=== PATIENT | female | born 1940 | race Caucasian/White ===

== ENCOUNTER 2018-02-27 13:23 | Observation (INO) ==
[2018-02-27] MEDS ORDERED: Adenosine Inj 6 MG/2 ML Syringe IV.PUSH ONE (13:35)
[2018-02-27] MEDS ORDERED: dilTIAZem Inj 125 MG in Sodium Chlor 0.9% Inj 100 ML IV.CONT PRN (13:51)
[2018-02-27 13:54] LABS: Baso % (Auto) 0.5 % (0.0-2.0); Eos # (Auto) 0.1 th/mm3 (0.0-0.4); Eos % (Auto) 1.4 % (0.0-4.0); Hematocrit 42.6 % (35.0-46.0); Hemoglobin 13.6 gm/dL (11.6-15.3); Lymph # (Auto) 3.1 th/mm3 (1.0-4.8); Lymph % (Auto) 37.6 % (9.0-44.0); Mean Corpuscular HGB Conc 31.8 % (32.0-36.0); Mean Corpuscular Hemoglobin 30.6 pg (27.0-34.0); Mean Corpuscular Volume 96.1 fL (80.0-100.0); Mean Platelet Volume 7.3 fL (7.0-11.0); Mono # (Auto) 0.9 th/mm3 (0.0-0.9); Mono % (Auto) 10.9 % (0.0-8.0); Neut # (Auto) 4.2 th/mm3 (1.8-7.7); Neut % (Auto) 49.6 % (16.0-70.0); Platelet Count 410 th/mm3 (150-450); Red Blood Count 4.43 mil/mm3 (4.00-5.30); Red Cell Distribution Width 13.8 % (11.6-17.2); White Blood Count 8.3 th/mm3 (4.0-11.0)
[2018-02-27 14:01] LABS: Chloride 96 meq/L (98-107); Potassium 3.5 meq/L (3.5-5.1); Sodium 130 meq/L (136-145)
[2018-02-27 14:05] LABS: Anion Gap 10 meq/L (5-15); Blood Urea Nitrogen 15 mg/dL (7-18); Calcium 8.5 mg/dL (8.5-10.1); Carbon Dioxide 23.6 meq/L (21.0-32.0); Glucose,Random 119 mg/dL (74-106); Magnesium 2.3 mg/dL (1.5-2.5)
[2018-02-27 14:08] LABS: Alanine Aminotransferase 16 U/L (10-53); Aspartate Aminotransferase 15 U/L (15-37); Glomerular Filtration Rate 48 mL/min (>89)
[2018-02-27 14:10] LABS: Total Protein 7.6 g/dL (6.4-8.2)
[2018-02-27 14:11] LABS: Alkaline Phosphatase 93 U/L (45-117)
[2018-02-27 14:31] LABS: Creatine Kinase 72 U/L (26-192)
--- NOTE | 2018-02-27 14:32 | XR ---
EXAM DATE: 02/27/2018 2:09 PM EST AGE/SEX: 77 years / Female INDICATIONS: Heart racing. CLINICAL DATA: This is the patient's initial encounter. Patient reports that signs and symptoms have been present for 1 day and indicates a pain score of 0/10. MEDICAL/SURGICAL HISTORY: None. None. COMPARISON: No prior exams available for comparison. FINDINGS: A single AP view of the chest demonstrates the lungs to be symmetrically aerated without evidence of mass, infiltrate or effusion. The cardiomediastinal contours are unremarkable. Osseous structures a re intact. CONCLUSION: Negative examination. Electronically signed by: Adin Rangel MD 02/27/2018 2:31 PM EST
[2018-02-27 15:04] LABS: Bilirubin,Urine Negative (Negative); Clarity,Urine Clear (Clear); Glucose,Urine (UA) Negative (Negative); Leukocyte Esterase,Urine Trace (Negative); Nitrite,Urine Negative (Negative); Urobilinogen,Urine 0.2 mg/dL (Less than 2)
[2018-02-27 15:06] LABS: Color,Urine Straw (Yellw/Straw)
[2018-02-27 15:10] LABS: RBC,Urine 0-3 /hpf (0-3)
[2018-02-27 15:11] LABS: Bacteria,Urine Rare /hpf; WBC,Urine 0-5 /hpf (0-5)
--- NOTE | 2018-02-27 16:30 | ED ---
HPI General Chief Complaint: Arrhythmia / Palpitations Stated Complaint: heart racing Time Seen by Provider: 02/27/18 13:29 History of Present Illness HPI narrative: This is a 77-year-old female with a history of atrial fibrillation, hyperlipidemia, hypothyroidism, hypertension, who presents today with complaints of palpitations. Patient states she was watching TV when she started expressing palpitations. She states that it happened around noon. She states that this morning when she woke up, she was not feeling normal. She denies any chest pain, chest pressure. She denies any dizziness. She denies any shortness of breath. She states that she thinks she has had this once before. She states that when he started her on her medication but could not tell me which medication. She is currently not taking any blood thinners. Related Data Home Medications Medication Instructions Recorded Confirmed diltiazem HCl 240 mg PO DAILY 02/27/18 02/27/18 esomeprazole magnesium [Nexium] 20 mg PO DAILY 02/27/18 02/27/18 levothyroxine 25 mcg PO DAILY 02/27/18 02/27/18 lovastatin 40 mg PO DAILY 02/27/18 02/27/18 paroxetine HCl 10 mg PO DAILY 02/27/18 02/27/18 Allergies Allergy/AdvReac Type Severity Reaction Status Date / Time risedronate sodium AdvReac Severe NAUSEA Verified 02/27/18 13:28 Review of Systems ROS: all other systems reviewed are negative Constitutional Reports system reviewed and no additional complaints, except as docu Eyes Reports system reviewed and no additional [facility] Reports system reviewed and no additional complaints, except as docu Cardiovascular Denies chest pain, Denies diaphoresis, Reports rapid heart rate, Reports palpitations and Denies dyspnea Respiratory Denies chest congestion and Denies dyspnea Gastrointestinal Denies abdominal pain, Denies nausea and Denies vomiting Genitourinary Reports system reviewed and no additional complaints, [facility] Musculoskeletal Reports system reviewed and no additional complaints, except [facility] Neurologic Denies vertigo, Denies dizziness, Denies headache(s), Denies focal weakness and Denies weakness PMF Medical History Medical History Atrial fibrillation (Acute) H/O cardiac arrhythmia (Acute) History of depression (Acute) Hx of gastroesophageal reflux (GERD) (Acute) Hx of thyroid disease (Acute) Surgical History Surgical History No history of previous surgery (Acute) Social History Social History Substance History: No History of Abuse Smoking Status: Never smoker How Often Do You Have a Drink Containing Alcohol: Never Recent Travel in [facility] within the Last 8 Weeks: No Recent Out of Country Travel within the Last 8 Weeks: No Exam Narrative Exam Narrative: GENERAL: Well-developed well-nourished female in no acute respiratory distress. SKIN: Focused skin assessment warm/dry. HEAD: Atraumatic. Normocephalic. EYES: No scleral icterus. No injection or drainage. ENT: No nasal bleeding or discharge. Mucous membranes pink and moist. NECK: Trachea midline. Supple. CARDIOVASCULAR: Tachycardic with a rate in 150s. No obvious murmurs appreciated. RESPIRATORY: No accessory muscle use. Clear to auscultation. Breath sounds equal bilaterally. GASTROINTESTINAL: Abdomen soft, non-tender, nondistended. Hepatic and splenic margins not palpable. MUSCULOSKELETAL: No obvious deformities. No clubbing. No cyanosis. No edema. NEUROLOGICAL: Awake and alert. No obvious cranial nerve deficits. Motor grossly within normal limits. Normal speech. Course Initial Documented Vital Signs Pulse Rate 155 H 02/27/18 13:30 Last Documented Vital Signs Temperature 97.8 F 02/27/18 13:33 Pulse Rate 88 02/27/18 15:40 Respiratory Rate 16 02/27/18 15:40 Blood Pressure 119/75 02/27/18 15:40 Pulse Oximetry 97 02/27/18 15:40 Medical Decision Making [facility] Narrative Medical decision making narrative: 77-year-old female presents today with palpitations and tachycardia. Patient states she was watching TV when it came on. Looking to the patient's history she has had both atrial fibrillation and SVT. Initially it looked like a flutter with a 2-1 block. We gave her Identicard 6 mg IV push which slowed her heart rate down and look like it decreased into sinus rhythm however then she developed what looks like flutter waves and went right back into the tachycardic rate. She has been given a diltiazem bolus and placed on a diltiazem drip. She is currently rate controlled. She states she feels much improved. Her TSH level is greater than 8. She states that she has been taking all her medications as prescribed. Case was discussed with Dr. Jordan Boateng, physician covering for [facility], who will admit the patient under observation to his service. She is currently on a diltiazem drip therefore will go to a monitored floor. Further disposition will be per Dr. Marquez. Medical Screen Exam Complete: Yes Emergency Medical Condition: Yes Differential Diagnosis Differential Diagnosis: SVT versus atrial flutter versus sinus tachycardia versus metabolic derangement Lab Data Result diagrams: 02/27/18 13:30 02/27/18 13:30 Lab Results 02/27/18 02/27/18 02/27/18 Range/Units 13:30 13:30 14:50 CBC w Diff Auto diff final WBC 8.3 (4.0-11.0) th/mm3 RBC 4.43 (4.00-5.30) mil/mm3 Hgb 13.6 (11.6-15.3) gm/dL Hct 42.6 (35.0-46.0) % MCV 96.1 (80.0-100.0) fL MCH 30.6 (27.0-34.0) pg MCHC 31.8 L (32.0-36.0) % RDW 13.8 (11.6-17.2) % Plt Count 410 (150-450) th/mm3 MPV 7.3 (7.0-11.0) fL Neut % (Auto) 49.6 (16.0-70.0) % Lymph % (Auto) 37.6 (9.0-44.0) % [place] % (Auto) 10.9 H (0.0-8.0) % Eos % (Auto) 1.4 (0.0-4.0) % Baso % (Auto) 0.5 (0.0-2.0) % Neut # (Auto) 4.2 (1.8-7.7) th/mm3 Lymph # (Auto) 3.1 (1.0-4.8) th/mm3 [place] # (Auto) 0.9 (0.0-0.9) th/mm3 Eos # (Auto) 0.1 (0.0-0.4) th/mm3 Baso # (Auto) 0.0 (0.0-0.2) th/mm3 WBC Differential . Differential Comment . Sodium 130 L (136-145) meq/L Potassium 3.5 (3.5-5.1) meq/L Chloride 96 L (98-107) meq/L Carbon Dioxide 23.6 (21.0-32.0) meq/L Anion Gap 10 (5-15) meq/L BUN 15 (7-18) mg/dL Creatinine 1.10 H (0.50-1.00) mg/dL Estimated GFR 48 L (>89) mL/min Random Glucose 119 H (74-106) mg/dL Calcium 8.5 (8.5-10.1) mg/dL Magnesium 2.3 (1.5-2.5) mg/dL Total Bilirubin 0.3 (0.2-1.0) mg/dL AST 15 (15-37) U/L ALT 16 (10-53) U/L Alkaline Phosphatase 93 (45-117) U/L Total Creatine Kinase 72 (26-192) U/L Troponin I Less than 0.02 L (0.02-0.05) ng/mL Total Protein 7.6 (6.4-8.2) g/dL Albumin 4.0 (3.4-5.0) g/dL TSH 8.250 H (0.358-3.740) uIU/mL Urine Color Straw (Yellw/Straw) Urine Clarity Clear (Clear) Urine pH 7.0 (5.0-8.5) Ur Specific [place] 1.010 (1.002-1.035) Urine Protein Negative (Neg-Trace) mg/dL Urine Glucose (UA) Negative (Negative) mg/dL Urine Ketones Negative (Negative) mg/dL Urine Occult Blood Small H (Negative) Urine Nitrate Negative (Negative) Urine Bilirubin Negative (Negative) Urine Urobilinogen 0.2 (Less than 2) mg/dL Ur Leukocyte Esterase Trace H (Negative) Urine RBC 0-3 (0-3) /hpf Urine WBC 0-5 (0-5) /hpf Urine Bacteria Rare H (None) /hpf Micro UA Comment Culture not ind Ur Microscopic Review Microscopic reviewed Urine Culture Comments Culture not ind Imaging Data Radiologist's impression: Chest X-Ray 02/27/18 13:35 CONCLUSION: Negative examination. Discharge Plan Discharge Disposition Patient Disposition: 30 Still Patient Discharge Details Diagnosis: Supraventricular tachycardia, Hypothyroidism Physicians Team ED Provider: Connor Joseph Primary Care Provider: Malini Yen Attending Provider: Jordan Marquez Discharge Interventions Interventions: Vital Signs Last Done: 02/27/18 15:40 Status ED Status: Admitted Observation Patient
[2018-02-27] MEDS ORDERED: Acetaminophen 325 MG Tablet PO PRN ×2 (16:59→21:55)
--- NOTE | 2018-02-27 17:11 | P.HP ---
History of Present Illness Service: [facility] Primary Care Physician: Malini Yen MD Chief Complaint: Palpitations History of Present Illness: 77-year-old white female who presents the emergency room with feelings of increased palpitations she has had this problem in the past she carries a history of both atrial flutter and history of SVT and has been on Cardizem 240 once a day, and has been taking her medicine regularly also has a history of hypothyroid and is is according to the records supposed to be on 50 MCG's but she says she is taking 25. No symptoms of chest pain no symptoms of shortness of breath no nausea no vomiting. Of note when she had the symptoms of increased heart rate she did take an aspirin she has declined use of any type of blood thinners in the past we did discuss at least she should consider aspirin daily with the possible addition of Eliquis or Xarelto. Patient was started on a Cardizem drip with improvement in the heart rate the atrial flutter seem to resolve into an SVT and then to a sinus. She is on Cardizem drip now will taper and DC it and will increase her p.o. Cardizem to 300 mg also will adjust her thyroid medicine to levothyroxine at 50 mg patient will be watched overnight with possible discharge in a.m. - Diagnosis (1) Atrial flutter with rapid ventricular response (2) Supraventricular tachycardia (3) Hypothyroidism Review of Systems All other systems reviewed negative except as stated in HPI [facility] - History History Provided By: Patient - Medical History Medical History: Medical History (Last Reviewed 02/27/18 @ 17:08 by Jordan Marquez MD) H/O cardiac arrhythmia History of depression Hx of gastroesophageal reflux (GERD) Hx of thyroid disease - Surgical History Surgical History: Surgical History (Last Reviewed 02/27/18 @ 17:08 by Jordan Marquez MD) No history of previous surgery - Tobacco History Smoking Status: Never smoker - Alcohol History How Often Do You Have a Drink Containing Alcohol: Never - Substance Use History Substance History: No History of Abuse - Travel History Recent Travel in the [place] Within the Last 8 Weeks: No Recent Travel Out of the Country Within the Last 8 Weeks: No - Immunization History Tetanus Immunization: Unsure Medications and Allergies Active Medications: Active Medications Acetaminophen (Tylenol) 650 mg PO Q4H PRN PRN Reason: Temp > 100.4 Diltiazem HCl (Cardizem Cd 24hr) 300 mg PO DAILY BILLY Diltiazem HCl 125 mg/ Sodium (Chloride) 125 mls @ 5 mls/hr IV.CONT TITRATE PRN ; Protocol PRN Reason: Per Protocol Last Admin: 02/27/18 14:39 Dose: 5 mg/hr, 5 mls/hr Levothyroxine Sodium (Synthroid) 50 mcg PO DAILY@0600 BILLY Non-Formulary Medication (Esomeprazole Magnesium [Nexium]) 20 mg PO DAILY BILLY Non-Formulary Medication (Lovastatin [Lovastatin]) 40 mg PO DAILY BILLY Non-Formulary Medication (Paroxetine Hcl [Paroxetine Hcl]) 10 mg PO DAILY BILLY Ondansetron HCl (Zofran Inj) 4 mg IV.PUSH Q6H PRN PRN Reason: NAUSEA OR VOMITING Senna/Docusate Sodium (Alana-Colace) 1 tab PO BID [facility] Sodium Chloride (Ns Flush) 2 ml IV.FLUSH PRN PRN PRN Reason: FLUSH AFTER USING IV ACCESS Last Admin: 02/27/18 13:49 Dose: 2 ml Sodium Chloride (Ns Flush) 2 ml IV.FLUSH BID BILLY Sodium Chloride (Ns Flush) 2 ml IV.FLUSH PRN PRN PRN Reason: FLUSH AFTER USING IV ACCESS Allergies Allergy/AdvReac Type Severity Reaction Status Date / Time risedronate sodium AdvReac Severe NAUSEA Verified 02/27/18 13:28 Home Medications Medication Instructions Recorded Confirmed Type diltiazem HCl 240 mg PO DAILY 02/27/18 02/27/18 History esomeprazole magnesium [Nexium] 20 mg PO DAILY 02/27/18 02/27/18 History levothyroxine 25 mcg PO DAILY 02/27/18 02/27/18 History lovastatin 40 mg PO DAILY 02/27/18 02/27/18 History paroxetine HCl 10 mg PO DAILY 02/27/18 02/27/18 History Exam Vital signs: Vital Signs 02/27/18 13:30 02/27/18 13:33 02/27/18 14:30 Temperature 97.8 F Pulse Rate 155 H 154 H 164 H Respiratory Rate 16 Blood Pressure 184/89 H Pulse Oximetry 94 L 02/27/18 14:55 02/27/18 15:10 02/27/18 15:25 Temperature Pulse Rate 97 H 92 H 92 H Respiratory Rate 16 16 16 Blood Pressure 112/70 121/73 118/76 Pulse Oximetry 97 97 98 02/27/18 15:40 Temperature Pulse Rate 88 Respiratory Rate 16 Blood Pressure 119/75 Pulse Oximetry 97 Intake & Output 02/26/18 02/27/18 02/27/18 18:59 06:59 18:59 Weight 61 kg Narrative: GENERAL: SKIN: Warm and dry. HEAD: Normocephalic. EYES: No scleral icterus. No injection or drainage. NECK: Supple, trachea midline. No JVD or lymphadenopathy. CARDIOVASCULAR: Irregular rate and rhythm without murmurs, gallops, or rubs. RESPIRATORY: Breath sounds equal bilaterally. No accessory muscle use. GASTROINTESTINAL: Abdomen soft, non-tender, nondistended. MUSCULOSKELETAL: No cyanosis, or edema. BACK: Nontender without obvious deformity. No CVA tenderness. Results - Labs CBC & Chem 7: 02/27/18 13:30 02/27/18 13:30 Labs: Laboratory Results - last 24 hr 02/27/18 02/27/18 02/27/18 13:30 13:30 14:50 CBC w Diff Auto diff final WBC 8.3 RBC 4.43 Hgb 13.6 Hct 42.6 MCV 96.1 MCH 30.6 MCHC 31.8 L RDW 13.8 Plt Count 410 MPV 7.3 Neut % (Auto) 49.6 Lymph % (Auto) 37.6 [place] % (Auto) 10.9 H Eos % (Auto) 1.4 Baso % (Auto) 0.5 Neut # (Auto) 4.2 Lymph # (Auto) 3.1 [place] # (Auto) 0.9 Eos # (Auto) 0.1 Baso # (Auto) 0.0 WBC Differential . Differential Comment . Sodium 130 L Potassium 3.5 Chloride 96 L Carbon Dioxide 23.6 Anion Gap 10 BUN 15 Creatinine 1.10 H Estimated GFR 48 L Random Glucose 119 H Calcium 8.5 Magnesium 2.3 Total Bilirubin 0.3 AST 15 ALT 16 Alkaline Phosphatase 93 Total Creatine Kinase 72 Troponin I Less than 0.02 L Total Protein 7.6 Albumin 4.0 TSH 8.250 H Urine Color Straw Urine Clarity Clear Urine pH 7.0 Ur Specific [place] 1.010 Urine Protein Negative Urine Glucose (UA) Negative Urine Ketones Negative Urine Occult Blood Small H Urine Nitrate Negative Urine Bilirubin Negative Urine Urobilinogen 0.2 Ur Leukocyte Esterase Trace H Urine RBC 0-3 Urine WBC 0-5 Urine Bacteria Rare H Micro UA Comment Culture not ind Ur Microscopic Review Microscopic reviewed Urine Culture Comments Culture not ind - Imaging Impressions Chest X-Ray 02/27/18 13:35 CONCLUSION: Negative examination. Caprini VTE Risk Assessment Caprini VTE Risk Assessment: Moderate/High Risk (score >= 2) Caprini Risk Assessment Model: Point Value = 1 Point Value = 2 Point Value = 3 Point Value = 5 Age 41-60 Minor surgery BMI > 25 kg/m2 Swollen legs Varicose veins or History of unexplained or recurrent spontaneous Oral contraceptives or hormone replacement Sepsis (< 1 month) Serious lung disease, including pneumonia (< 1 month) Abnormal pulmonary function Acute myocardial infarction Congestive heart failure (< 1 month) History of inflammatory bowel disease Medical patient at bed rest Age 61-74 Arthroscopic surgery Major open surgery (> 45 min) Laparoscopic surgery (> 45 min) Malignancy Confined to bed (> 72 hours) Immobilizing plaster cast Central venous access Age >= 75 History of VTE Family history of VTE Factor V Leiden Prothrombin [id number] Lupus anticoagulant Anticardiolipin antibodies Elevated serum homocysteine Heparin-induced thrombocytopenia Other congenital or acquired thrombophilia Stroke (< 1 month) Elective arthroplasty Hip, pelvis, or leg fracture Acute spinal cord injury (< 1 month) Prophylaxis Regimen: Total Risk Factor Score Risk Level Prophylaxis Regimen 0-1 Low Early ambulation 2 Moderate Order ONE of the following: *Sequential Compression Device (SCD) *Heparin 5000 units SQ BID 3-4 Higher Order ONE of the following medications: *Heparin 5000 units SQ TID *Enoxaparin/Lovenox 40 mg SQ daily (WT < 150 kg, CrCl > 30 mL/min) *Enoxaparin/Lovenox 30 mg SQ daily (WT < 150 kg, CrCl > 10-29 mL/min) *Enoxaparin/Lovenox 30 mg SQ BID (WT < 150 kg, CrCl > 30 mL/min) AND/OR *Sequential Compression Device (SCD) 5 or more Highest Order ONE of the following medications: *Heparin 5000 units SQ TID (Preferred with Epidurals) *Enoxaparin/Lovenox 40 mg SQ daily (WT < 150 kg, CrCl > 30 mL/min) *Enoxaparin/Lovenox 30 mg SQ daily (WT < 150 kg, CrCl > 10-29 mL/min) *Enoxaparin/Lovenox 30 mg SQ BID (WT < 150 kg, CrCl > 30 mL/min) AND *Sequential Compression Device (SCD) Assessment and Plan - Assessment (1) Atrial flutter with rapid ventricular response Code(s): I48.92 - Unspecified atrial flutter Status: Acute Plan: Heart rate has slowed down with the use of IV Cardizem on a drip hopefully we can DC this in favor of p.o. Cardizem increased from 240-300 and can follow-up with her primary care physician consider possibly addition of blood thinners. (2) Supraventricular tachycardia Code(s): I47.1 - Supraventricular tachycardia Status: Acute Plan: Rate on initial evaluation appeared to be atrial flutter also looks like there is SVT and now is in a sinus type rhythm we will continue to observe (3) Hypothyroidism Code(s): E03.9 - Hypothyroidism, unspecified Status: Acute Plan: Thyroid dose has been adjusted to 50 MCG and can follow-up as an outpatient as her TSH was 8 - Plan Further plan as case develops she did have a low sodium we will recheck that in the a.m. Code Status: Full Discussed Condition With: Patient and family (3) Hypothyroidism Qualifiers: Hypothyroidism type: unspecified Qualified Code(s): E03.9 - Hypothyroidism, unspecified
[2018-02-27] MEDS: Sod Chloride 0.9% Inj 1,000 ML IV.CONT SCH (20:12)
[2018-02-27] MEDS: Senna/Docusate Sodium 8.6/50 MG Tablet PO SCH (20:13)
[2018-02-28] MEDS ORDERED: Levothyroxine 50 MCG Tablet PO SCH (06:00)
[2018-02-28] MEDS: Sod Chloride 0.9% Inj 1,000 ML IV.CONT SCH (06:17)
[2018-02-28 06:21] LABS: Potassium 3.8 meq/L (3.5-5.1)
[2018-02-28 06:24] LABS: Calcium 8.4 mg/dL (8.5-10.1)
[2018-02-28 06:25] LABS: Carbon Dioxide 25.9 meq/L (21.0-32.0)
[2018-02-28] MEDS ORDERED: dilTIAZem CD 300 MG Capsule PO SCH (09:00)
[2018-02-28] MEDS ORDERED: Pantoprazole Sodium 20 MG DR Tablet PO SCH (09:00)
[2018-02-28 09:17] VITALS: O2SAT 96
[2018-02-28] MEDS: Senna/Docusate Sodium 8.6/50 MG Tablet PO SCH (09:23)
--- NOTE | 2018-02-28 09:39 | P.DS ---
Date of admission: 02/27/18 15:57 Primary care physician: Malini Yen MD Attending physician on discharge: Jordan Marquez Anticipated date of discharge: 02/28/18 Brief History from admission: 77-year-old white female who presents the emergency room with feelings of increased palpitations she has had this problem in the past she carries a history of both atrial flutter and history of SVT and has been on Cardizem 240 once a day, and has been taking her medicine regularly also has a history of hypothyroid and is is according to the records supposed to be on 50 MCG's but she says she is taking 25. No symptoms of chest pain no symptoms of shortness of breath no nausea no vomiting. Of note when she had the symptoms of increased heart rate she did take an aspirin she has declined use of any type of blood thinners in the past we did discuss at least she should consider aspirin daily with the possible addition of Eliquis or Xarelto. Patient was started on a Cardizem drip with improvement in the heart rate the atrial flutter seem to resolve into an SVT and then to a sinus. She is on Cardizem drip now will taper and DC it and will increase her p.o. Cardizem to 300 mg also will adjust her thyroid medicine to levothyroxine at 50 mg patient will be watched overnight with possible discharge in a.m. DS: Diagnosis - Discharge Diagnosis (1) Atrial flutter with rapid ventricular response Status: Acute (2) Supraventricular tachycardia Status: Acute (3) Hypothyroidism Status: Acute DS: Summary Hospital Course: Patient admitted from ER had episode atrial flutter with svt converted to sins after adenocard then cardiazem drip which was d/becka and patient has been in sinus overnight also her home med was levothyroxine 50 and that was corrected in med list. Patient had sodium and cr a little off corrected with some IV fluid. Discharge home on asa 325,levothyroxine 50,cardiazem 300 and follow up next week with PCP. - Time Spent with Patient Total time spent providing and/or coordinating discharge services: Less than 30 minutes Exam Vital signs: Vital Signs 02/27/18 13:30 02/27/18 13:33 02/27/18 14:30 Temperature 97.8 F Pulse Rate 155 H 154 H 164 H Respiratory Rate 16 Blood Pressure 184/89 H Pulse Oximetry 94 L 02/27/18 14:55 02/27/18 15:10 02/27/18 15:25 Temperature Pulse Rate 97 H 92 H 92 H Respiratory Rate 16 16 16 Blood Pressure 112/70 121/73 118/76 Pulse Oximetry 97 97 98 02/27/18 15:40 02/27/18 16:00 02/27/18 16:30 Temperature Pulse Rate 88 88 88 Respiratory Rate 16 16 16 Blood Pressure 119/75 123/68 115/65 Pulse Oximetry 97 02/27/18 17:30 02/27/18 17:34 02/27/18 17:38 Temperature Pulse Rate 84 82 Respiratory Rate 16 24 Blood Pressure 103/67 118/55 L Pulse Oximetry 02/27/18 18:35 02/27/18 19:00 02/27/18 20:00 Temperature 97.9 F 98.3 F Pulse Rate 78 74 Respiratory Rate 21 22 Blood Pressure 122/76 123/63 Pulse Oximetry 97 02/27/18 20:09 02/27/18 21:01 02/27/18 21:19 Temperature Pulse Rate 80 72 Respiratory Rate 34 H 14 Blood Pressure 123/63 104/60 Pulse Oximetry 97 02/27/18 22:00 02/27/18 23:00 02/28/18 00:00 Temperature 98.7 F Pulse Rate 74 68 66 Respiratory Rate 26 H 24 14 Blood Pressure 110/56 L 102/45 L 107/48 L Pulse Oximetry 95 02/28/18 03:05 02/28/18 04:00 02/28/18 08:00 Temperature 98.1 F Pulse Rate 60 62 Respiratory Rate 20 14 Blood Pressure 135/56 L 135/56 L Pulse Oximetry 97 96 Intake & Output 02/27/18 02/28/18 02/28/18 18:59 06:59 18:59 Intake Total 1200 / 1200 Output Total 1125 / 1125 Balance 75 / 75 Weight 63.4 kg 63.2 kg Intake: IV 1000 / 1000 NS Inj 1,000 ML @ 84 mls/hr IV. 1000 / 1000 CONT .[id number] BILLY Rx#: [id number] Oral 200 / 200 Output: Urine 1125 / 1125 Other: # Voids 2 Date of Last Bowel Movement 02/27/18 # Bowel Movements 0 Weight On Admission 63.4 kg Narrative: GENERAL: SKIN: Warm and dry. HEAD: Normocephalic. EYES: No scleral icterus. No injection or drainage. NECK: Supple, trachea midline. No JVD or lymphadenopathy. CARDIOVASCULAR: regular rate and rhythm without murmurs, gallops, or rubs. RESPIRATORY: Breath sounds equal bilaterally. No accessory muscle use. GASTROINTESTINAL: Abdomen soft, non-tender, nondistended. MUSCULOSKELETAL: No cyanosis, or edema. BACK: Nontender without obvious deformity. No CVA tenderness. Results Procedures completed during hospitalization: none Labs on day of discharge: Labs from last 24 hours 02/28/18 02/27/18 02/27/18 06:02 20:25 14:50 CBC w Diff WBC RBC Hgb Hct MCV MCH MCHC RDW Plt Count MPV Neut % (Auto) Lymph % (Auto) [place] % (Auto) Eos % (Auto) Baso % (Auto) Neut # (Auto) Lymph # (Auto) [place] # (Auto) Eos # (Auto) Baso # (Auto) WBC Differential Differential Comment Sodium 133 L Potassium 3.8 Chloride 100 Carbon Dioxide 25.9 Anion Gap 7 BUN 12 Creatinine 0.91 Estimated GFR 60 L Random Glucose 109 H Calcium 8.4 L Magnesium Total Bilirubin AST ALT Alkaline Phosphatase Total Creatine Kinase Troponin I Less than 0.02 L Total Protein Albumin TSH Urine Color Straw Urine Clarity Clear Urine pH 7.0 Ur Specific [place] 1.010 Urine Protein Negative Urine Glucose (UA) Negative Urine Ketones Negative Urine Occult Blood Small H Urine Nitrate Negative Urine Bilirubin Negative Urine Urobilinogen 0.2 Ur Leukocyte Esterase Trace H Urine RBC 0-3 Urine WBC 0-5 Urine Bacteria Rare H Micro UA Comment Culture not ind Ur Microscopic Review Microscopic reviewed Urine Culture Comments Culture not ind 02/27/18 02/27/18 13:30 13:30 CBC w Diff Auto diff final WBC 8.3 RBC 4.43 Hgb 13.6 Hct 42.6 MCV 96.1 MCH 30.6 MCHC 31.8 L RDW 13.8 Plt Count 410 MPV 7.3 Neut % (Auto) 49.6 Lymph % (Auto) 37.6 [place] % (Auto) 10.9 H Eos % (Auto) 1.4 Baso % (Auto) 0.5 Neut # (Auto) 4.2 Lymph # (Auto) 3.1 [place] # (Auto) 0.9 Eos # (Auto) 0.1 Baso # (Auto) 0.0 WBC Differential . Differential Comment . Sodium 130 L Potassium 3.5 Chloride 96 L Carbon Dioxide 23.6 Anion Gap 10 BUN 15 Creatinine 1.10 H Estimated GFR 48 L Random Glucose 119 H Calcium 8.5 Magnesium 2.3 Total Bilirubin 0.3 AST 15 ALT 16 Alkaline Phosphatase 93 Total Creatine Kinase 72 Troponin I Less than 0.02 L Total Protein 7.6 Albumin 4.0 TSH 8.250 H Urine Color Urine Clarity Urine pH Ur Specific [place] Urine Protein Urine Glucose (UA) Urine Ketones Urine Occult Blood Urine Nitrate Urine Bilirubin Urine Urobilinogen Ur Leukocyte Esterase Urine RBC Urine WBC Urine Bacteria Micro UA Comment Ur Microscopic Review Urine Culture Comments - Impressions ITS Impressions Chest X-Ray 02/27/18 13:35 CONCLUSION: Negative examination. Discharge Plan - Discharge Disposition Patient Disposition: Discharge Home - Discharge Condition Condition: Good - Discharge Order Discharge Orders: Discharge Order (Routine); Ordered 02/28/18 Ordered By: Jordan Marquez - Discharge Details Anticipated Discharge Date: 02/28/18 - Physicians Team Primary Care Provider: Malini Yen Attending Provider: Jordan Marquez
[2018-02-28 09:40] VITALS: BP 133/56; RESP 22; TEMP 97.9
[2018-02-28 09:44] VITALS: PULSE 85
--- NOTE | 2018-02-28 12:44 | ECG ---
Date Performed: 02/27/2018 Time Performed: 13:49:04 PTAGE: 77 years EKG: SINUS TACHYCARDIA MODERATE ST DEPRESSION ABNORMAL ECG Since the PREVIOUS TRACING , no significant change noted PREVIOUS TRACIN02/27/2018 13.28 DOCTOR: Eugene Jose Interpretating Date/Time 02/28/2018 12:43:23
--- NOTE | 2018-02-28 13:24 | ECG ---
Date Performed: 02/27/2018 Time Performed: 15:16:36 PTAGE: 77 years EKG: Sinus rhythm NORMAL ECG PREVIOUS TRACING : 02/27/2018 13.49 Compared to previous tracing, rate has slowed. ST changes h ave improved. DOCTOR: Eugene Jose Interpretating Date/Time 02/28/2018 13:24:27
--- NOTE | 2018-02-28 13:24 | ECG ---
Date Performed: 02/27/2018 Time Performed: 13:28:25 PTAGE: 77 years EKG: SINUS TACHYCARDIA WITH SHORT HI INTERVAL, POSSIBLE ATRIAL FLUTTER ST DEVIATION AND MODERATE T-WAVE ABNORMALITY, CONSIDER INFERIOR ISCHEMIA ABNORMAL ECG PREVIOUS TRACING : 06/16/2002 06.57 Compared to previous tracing, tachycardia is now noted with Nonspecific ST-T wave changes suggestive of ischemia. Clinical correlation is recommended DOCTOR: Eugene Jose Interpretating Date/Time 02/28/2018 13:23:53
== END 2018-02-28 10:00 | disposition home or self-care (01) ==
LOC: PHEDA 13:23 → PHED 13:23 → PHEDA 17:32 → PHICU 17:50
PROVIDERS: ADMIT Internal Medicine; ATTEND Internal Medicine